=== PATIENT | female | born 1985 | race Caucasian/White ===

== ENCOUNTER 2016-10-15 23:38 | Emergency (ER) | payer MEDICAID ==
[~2016-10-15] VITALS: Ht 165.1 cm; Wt 63.5 kg
[2016-10-16] MEDS ORDERED: ONDANSETRON 4 MG TAB.RAPDIS ONE (00:57)
[2016-10-16] MEDS ORDERED: ONDANSETRON 4 MG TAB.RAPDIS SL ONE (01:00)
[2016-10-16 01:12] LABS: CALCIUM, SERUM 8.2 mg/dL (8.5-10.1); CREATININE 0.9 mg/dL (0.6-1.3); POTASSIUM 3.3 mmol/L (3.5-5.1)
[2016-10-16 01:18] LABS: ALBUMIN 3.2 g/dL (3.4-5.0); BASOPHILS % (AUTO) 0.4 % (0.0-2.0); BILIRUBIN,DIRECT 0.1 mg/dL (0.0-0.2); BILIRUBIN,TOTAL 0.3 mg/dL (0.2-1.0); DIFF TOTAL % 100 %; EOSINOPHILS # (AUTO) 0.2 /CMM (0.0-0.7); EOSINOPHILS % (AUTO) 2.2 % (0.0-6.0); HEMATOCRIT 40 % (33-45); HEMOGLOBIN 13.5 g/dL (11.5-14.8); INDIRECT BILIRUBIN 0.2 mg/dL (0.0-1.1); LYMPHOCYTES # (AUTO) 2.7 /CMM (0.8-4.8); LYMPHOCYTES % (AUTO) 28.2 % (20.0-44.0); MEAN CORPUSCULAR HEMOGLOBIN 30 PG (26.0-33.0); MEAN CORPUSCULAR HGB CONC 34 g/dl (31.0-36.0); MEAN CORPUSCULAR VOLUME 86 fL (82-100); MONOCYTES # (AUTO) 0.7 /CMM (0.1-1.30); MONOCYTES % (AUTO) 7.4 % (2.0-12.0); NEUTROPHILS % (AUTO) 61.8 % (43.0-81.0); PLATELET COUNT (AUTO) 274 /CMM (150-450); RED BLOOD CELL COUNT(AUTO) 4.59 MIL/uL (4.0-5.2); TOTAL PROTEIN, SERUM 7.2 g/dL (6.4-8.2); WHITE BLOOD COUNT (AUTO) 9.7 K/uL (4.3-11.0)
[2016-10-16 01:18] LABS: KETONES,URINE NEGATIVE (NEGATIVE); LEUKOCYTE ESTERASE ,URINE 1+ (NEGATIVE); PH,URINE 7.5 (5.0-8.0)
[2016-10-16 01:25] LABS: INR 0.94 (0.87-1.13); PROTHROMBIN TIME 10.2 SECS (9.5-12.7)
[2016-10-16 01:32] LABS: ADD UA MICROSCOPIC YES
[2016-10-16 01:41] LABS: ADD URINE CULTURE YES; MUCUS,URINE Rare /LPF (None Seen); RBC,URINE 0-5 /HPF (0-2); WBC,URINE 0-5 /HPF (0-3)
[2016-10-16] MEDS ORDERED: LIDOCAINE VISCOUS 2% UD 15 ML UDC ONE (01:53)
[2016-10-16] MEDS ORDERED: MAG HYDROX/AL HYDROX/SIMETH 30 ML UDC ONE (01:53)
[2016-10-16] MEDS ORDERED: LIDOCAINE VISCOUS 2% UD 15 ML UDC MM ONE (02:00)
[2016-10-16] MEDS ORDERED: MAG HYDROX/AL HYDROX/SIMETH 30 ML UDC PO ONE (02:00)
[2016-10-16 03:54] VITALS: BP 121/69
== END 2016-10-16 02:40 | disposition home or self-care (01) ==
LOC: ER 23:38
DX: K21.9 Gastro-esophageal reflux disease without esophagitis (principal); R10.84 Generalized abdominal pain
CPT/HCPCS: 36415; 76700; 80048; 80076; 81001; 83690; 84703; 85025; 85730; 87086; 99285; A4606; Q0162; Z7610; 81000-TC

== ENCOUNTER 2017-01-24 04:00 | Emergency (ER) | payer MEDICAID ==
[~2017-01-24] VITALS: Ht 152.4 cm; Wt 66.2 kg
[2017-01-24 04:13] VITALS: BP 129/80
== END 2017-01-24 04:57 | disposition home or self-care (01) ==
LOC: ER 04:03
DX: K08.89 Other specified disorders of teeth and supporting structures (principal)
CPT/HCPCS: 99283; A4606; Z7610

== ENCOUNTER 2024-07-06 17:35 | Emergency (ER) | payer MEDICAID, OTHER ==
[~2024-07-06] VITALS: Ht 149.9 cm; Wt 75.3 kg
[2024-07-06 17:49] VITALS: BP 136/71; TEMP 98.6; O2SAT 97
[2024-07-06] MEDS ORDERED: CIPR7.5D9 LEFT EAR (19:36)
[2024-07-06] MEDS ORDERED: KETOROLAC TROMETHAMINE 15 MG/ML VIAL ONE (19:43)
[2024-07-06] MEDS: KETOROLAC TROMETHAMINE 15 MG/ML VIAL IM ONE (19:48)
== END 2024-07-06 19:49 | disposition home or self-care (01) ==
LOC: ER 17:46
DX: H60.92 Unspecified otitis externa, left ear (principal)
CPT/HCPCS: 99283; 96372; J1885